=== PATIENT | female | born 1940 ===

== ENCOUNTER 2017-05-25 09:51 | Emergency (ER) | payer MEDICARE, BC ==
[~2017-05-25] VITALS: Ht 160 cm; Wt 69.0 kg
[~2017-05-25 09:51] MED LIST: FOSAMAX; LEVOTHROID50 MCG OR; LEVOTHYROXIN75 MCG PO; OS-CAL 500500 M1 PO
[2017-05-25 11:12] LABS: HEMATOCRIT 34.2 % (37.0-47.0); IMMATURE GRANULOCYTES 0.3 % (0.0-1.0); MEAN CELL VOLUME 98.3 fL CALC (80.0-100.0); MEAN CORPUSCULAR HGB 31.6 pG CALC (26.0-32.0); MEAN CORPUSCULAR HGB CONC 32.2 g/L CALC (32.0-36.0); NEUT# 3.83 thou/uL (2.00-7.15); RED BLOOD COUNT 3.48 mill/uL (4.20-5.60)
[2017-05-25] MEDS ORDERED: EC-NAPROSYN500 MG PO (11:18)
[2017-05-25] MEDS ORDERED: TRAMADOL HYDROC50 MG PO (11:18)
[2017-05-25 11:27] LABS: ALBUMIN 4.1 g/dL (3.2-5.0); BILIRUBIN, TOTAL 1.1 mg/dL (0.0-1.4); CALCIUM 9.7 mg/dL (8.4-10.2); CREATININE 1.1 mg/dL (0.5-1.0); POTASSIUM 4.4 mmol/l (3.5-5.1); TOTAL PROTEIN 7.1 g/dL (6.3-8.2)
[2017-05-25 11:44] VITALS: BP 152/77
== END 2017-05-25 12:00 | disposition home or self-care (01) ==
LOC: ED 09:51
PROVIDERS: Emergency Medicine
DX: M79.1 Myalgia (principal); R22.41 Localized swelling, mass and lump, right lower limb

== ENCOUNTER 2018-07-16 12:45 | Emergency (ER) | payer MEDICARE, BC ==
[~2018-07-16] VITALS: Ht 160 cm; Wt 60.0 kg
[~2018-07-16 12:45] MED LIST changes: +EC-NAPROSYN500 MG PO; +TRAMADOL HYDROC50 MG PO
[2018-07-16 13:11] LABS: HEMATOCRIT 34.3 % (37.0-47.0); HEMOGLOBIN 11.5 g/dl (12.0-16.0); IMMATURE GRANULOCYTES 0.8 % (0.0-5.0); MEAN CELL VOLUME 95.3 fL CALC (80.0-100.0); MEAN CORPUSCULAR HGB 31.9 pG CALC (26.0-32.0); MEAN CORPUSCULAR HGB CONC 33.5 g/L CALC (32.0-36.0); NEUT# 8.73 thou/uL (2.00-7.15); RED BLOOD COUNT 3.6 mill/uL (4.20-5.60); RED CELL DISTRI WIDTH 15.6 % (11.5-15.5)
[2018-07-16 14:10] LABS: BILIRUBIN, TOTAL 0.8 mg/dL (0.0-1.4); CREATININE 2.1 mg/dL (0.5-1.0); POTASSIUM 3.8 mmol/l (3.5-5.1)
[2018-07-16 14:12] LABS: ALBUMIN 2.8 g/dL (3.2-5.0); TOTAL PROTEIN 5.6 g/dL (6.3-8.2)
[2018-07-16 16:57] LABS: URINE BILIRUBIN - DIPSTICK NEGATIVE (NEGATIVE); URINE BLOOD DIPSTICK TRACE-INTACT (NEGATIVE); URINE COLOR YELLOW; URINE GLUCOSE - DIPSTICK NEGATIVE (NEGATIVE); URINE KETONE 15 mg/dL (NEGATIVE); URINE PH 5.5 (4.5-8.0); URINE PROTEIN - DIPSTICK 100 mg/dL (NEG-TRACE); URINE SPECIFIC GRAVITY >=1.030; URINE UROBILINOGEN - DIPSTICK 0.2 E.U./dL (0.2)
[2018-07-16 17:08] LABS: URINE CLARITY SL CLOUDY; URINE LEUK ESTERASE SMALL (NEGATIVE); URINE NITRITE - DIPSTICK POSITIVE (Negative)
[2018-07-16 17:16] LABS: URINE BACTERIA MODERATE hpf; URINE SQUAMOUS EPITHELIAL CELL FEW EPI/hpf (0-FEW)
[2018-07-16 17:17] LABS: URINE CALCIUM OXALATE CRYSTALS MODERATE lpf
[2018-07-16 18:46] VITALS: BP 104/48
== END 2018-07-16 18:46 | disposition short-term general hospital (02) ==
LOC: ED 12:45
PROVIDERS: Family Medicine
DX: K63.1 Perforation of intestine (nontraumatic) (principal); G20 Parkinson's disease; B96.20 Unspecified Escherichia coli [E. coli] as the cause of diseases classified elsewhere

== ENCOUNTER 2018-10-12 18:25 | Inpatient (IN) | payer MEDICARE, BC ==
[~2018-10-12] VITALS: Ht 160 cm; Wt 49.6 kg
[2018-10-12] MEDS ORDERED: RYTARY 36.25-141 CAP PO (18:32)
[2018-10-12] MEDS ORDERED: PEPCID20 MG PO (18:33)
[2018-10-12] MEDS ORDERED: XADAGO PO (18:33)
[2018-10-12] MEDS ORDERED: MIDODRINE HCL2.5 MG PO (18:33)
[2018-10-12] MEDS ORDERED: SYSTAN1 OP (18:34)
[2018-10-12] MEDS ORDERED: MIRALAX3350 NF PO (18:34)
[2018-10-12 19:49] LABS: HEMATOCRIT 37.2 % (37.0-47.0); HEMOGLOBIN 12.2 g/dl (12.0-16.0); IMMATURE GRANULOCYTES 0.4 % (0.0-5.0); MEAN CELL VOLUME 98.2 fL CALC (80.0-100.0); MEAN CORPUSCULAR HGB 32.2 pG CALC (26.0-32.0); MEAN CORPUSCULAR HGB CONC 32.8 g/L CALC (32.0-36.0); NEUT# 3.89 thou/uL (2.00-7.15); RED BLOOD COUNT 3.79 mill/uL (4.20-5.60); RED CELL DISTRI WIDTH 15.7 % (11.5-15.5)
[2018-10-12 20:00] LABS: BILIRUBIN, TOTAL 0.7 mg/dL (0.0-1.4); CREATININE 1.3 mg/dL (0.5-1.0); POTASSIUM 4.5 mmol/l (3.5-5.1)
[2018-10-12 20:01] LABS: TOTAL PROTEIN 7.3 g/dL (6.3-8.2)
[2018-10-12 20:11] LABS: MYOGLOBIN 39 ng/mL (0 - 62)
[2018-10-12 20:31] LABS: TSH, 3RD GENERATION 2.79 uIU/mL (0.47 - 4.68)
[2018-10-12 20:48] LABS: URINE BILIRUBIN - DIPSTICK NEGATIVE (NEGATIVE); URINE BLOOD DIPSTICK NEGATIVE (NEGATIVE); URINE COLOR YELLOW; URINE GLUCOSE - DIPSTICK NEGATIVE (NEGATIVE); URINE KETONE NEGATIVE (NEGATIVE); URINE LEUK ESTERASE NEGATIVE (NEGATIVE); URINE NITRITE - DIPSTICK NEGATIVE (Negative); URINE PROTEIN - DIPSTICK NEGATIVE (NEG-TRACE); URINE UROBILINOGEN - DIPSTICK 0.2 E.U./dL (0.2)
[2018-10-12 22:11] VITALS: BP 187/76
[2018-10-12 23:45] VITALS: BP 156/69
[2018-10-13] VITALS (11 sets, daily range): BP systolic 104–180; BP diastolic 54–81
[2018-10-13] MEDS ORDERED: MULTI VIT PO (10:53)
[2018-10-14 00:24] VITALS: BP 166/54
[2018-10-14 04:30] VITALS: BP 188/63
[2018-10-14 04:35] VITALS: BP 190/83
[2018-10-14 04:40] VITALS: BP 106/67
[2018-10-14 05:16] LABS: IMMATURE GRANULOCYTES 0.2 % (0.0-5.0); MEAN CELL VOLUME 98.6 fL CALC (80.0-100.0); MEAN CORPUSCULAR HGB 31.9 pG CALC (26.0-32.0); MEAN CORPUSCULAR HGB CONC 32.4 g/L CALC (32.0-36.0); NEUT# 2.76 thou/uL (2.00-7.15); RED BLOOD COUNT 3.45 mill/uL (4.20-5.60); RED CELL DISTRI WIDTH 15.5 % (11.5-15.5)
[2018-10-14 05:29] LABS: ALBUMIN 3.3 g/dL (3.2-5.0); BILIRUBIN, TOTAL 0.7 mg/dL (0.0-1.4); CREATININE 1.1 mg/dL (0.5-1.0); MAGNESIUM 2.1 mg/dL (1.6-2.3); POTASSIUM 4.2 mmol/l (3.5-5.1); TOTAL PROTEIN 6.2 g/dL (6.3-8.2)
[2018-10-14 07:25] VITALS: BP 135/50
[2018-10-14] MEDS ORDERED: MIDODRINE HCL5 MG PO (11:14)
== END 2018-10-14 12:00 | disposition home health service (06) | DRG 312 ==
LOC: ED 18:25 → ED-I 21:05 → ED 21:31 → MS2 21:32
PROVIDERS: Emergency Medicine; Family Medicine; ADMIT Internal Medicine; ATTEND Internal Medicine Nephrology
PROC: 0HQDXZZ Repair Right Lower Arm Skin, External Approach (ICD-10-PCS; principal; 2018-10-12)
DX: I95.2 Hypotension due to drugs (principal); G24.09 Other drug induced dystonia; T42.8X5A Adverse effect of antiparkinsonism drugs and other central muscle-tone depressants, initial encounter; I12.9 Hypertensive chronic kidney disease with stage 1 through stage 4 chronic kidney disease, or unspecified chronic kidney disease; N18.3 Chronic kidney disease, stage 3 (moderate); E03.9 Hypothyroidism, unspecified; G20 Parkinson's disease; M19.90 Unspecified osteoarthritis, unspecified site; S51.011A Laceration without foreign body of right elbow, initial encounter; W18.30XA Fall on same level, unspecified, initial encounter; Y92.009 Unspecified place in unspecified non-institutional (private) residence as the place of occurrence of the external cause
CPT/HCPCS: G0378; J1650